=== PATIENT | male | born 1990 | race Caucasian/White ===

== ENCOUNTER 2018-04-17 09:23 | Emergency (ER) | payer OTHER ==
[~2018-04-17] VITALS: Ht 172.7 cm; Wt 63.5 kg
--- OUTSIDE RECORDS SUMMARY | 2018-04-17 09:26 | XMS ---
PreManage Notification: JULIAN WILKERSON Security Communications Controller Events No recent Security Events currently on file CRITERIA MET - 6 ED Visits in 6 Months - [facility] - 2 Visits in 30 Days CARE PROVIDERS [facility] Community [facility] Worker 04/01/2018-Adelia Brantley PHONE: [phone] [facility] Current PHONE: [phone] Roxana Page Case or Managed Care Director Adelia Woods PHONE: [phone] [facility] Primary Care Current PHONE: Unknown MONIQUE TORRE [facility] PHONE: Unknown Raymundo has no Care Guidelines for this patient. [place] VISIT COUNT (12 MO.) [address] [place] [address] ED 1 J[facility] Jimenes TOTAL 14 NOTE: Visits indicate total known visits. ED/UCC VISIT TRACKING (12 MO.) 04/17/2018 09:24 [facility] [place] TYPE: Emergency COMPLAINT: - REQUESTING ADDICTION HELP 04/15/2018 07:11 [facility] [place] TYPE: Emergency DIAGNOSES: - Homelessness - Cramp and spasm - GENERAL MEDICAL 04/02/2018 23:20 [facility] [place] TYPE: Emergency DIAGNOSES: - Chondrocostal junction syndrome [Tietze] - chest pain 03/31/2018 23:27 [facility] [place] TYPE: Emergency DIAGNOSES: - Maxillary fracture, left side, initial encounter for closed fracture - Contusion of unspecified front wall of thorax, initial encounter - slipped and fell;facial injuries and rib pain 03/22/2018 23:55 [facility] [employer] [place] TYPE: Emergency DIAGNOSES: - FLU LIKE SYMPTOMS 03/12/2018 23:08 [facility] [employer] [place] TYPE: Emergency DIAGNOSES: - Major depressive disorder, single episode, unspecified - Mental Health 03/11/2018 01:40 [facility] [employer] [place] TYPE: Emergency DIAGNOSES: - Severe Depression - Major depressive disorder, single episode, unspecified 02/20/2018 11:39 [facility] [employer] [place] TYPE: Emergency DIAGNOSES: - Opioid dependence, uncomplicated - Noninfective gastroenteritis and colitis, unspecified - Peptic ulcer, site unspecified, unspecified as acute or chronic, without hemorrhage or perforation - ABD PAIN 02/20/2018 03:50 [facility] DIAGNOSES: - abd pain 02/11/2018 09:40 [facility] [place] TYPE: Emergency DIAGNOSES: - Opioid abuse, uncomplicated - DETOX 06/19/2017 14:02 [facility] [place] TYPE: Emergency COMPLAINT: - ABDOMINAL PAIN 06/05/2017 17:54 [facility] TYPE: Emergency DIAGNOSES: - Other stimulant use, unspecified with withdrawal - Sleeping Problem - Emesis - abdominal pain; weakness; headache - Anxiety 05/17/2017 14:46 [facility] [place] TYPE: Emergency COMPLAINT: - VERTIGO 05/16/2017 14:15 [facility] [place] TYPE: Emergency COMPLAINT: - VERTIGO DIAGNOSES: - Procedure and treatment not carried out due to patient leaving prior to being seen by health care provider INPATIENT VISIT TRACKING (12 MO.) No inpatient visits to display in this time frame [id number]
== END 2018-04-17 10:12 | disposition home or self-care (01) ==
LOC: ED 09:23
DX: Z00.8 Encounter for other general examination (principal)